=== PATIENT | female | born 1980 | race Two or more races ===

== ENCOUNTER 2024-10-29 20:14 | Emergency (ER) | payer MEDICAID, SELFPAY ==
[2024-10-29 20:44] VITALS: BP 125/85; PULSE 87; RESP 18; TEMP 37.1; O2SAT 98; BMI 29.4
--- NOTE | 2024-10-29 20:49 | EDNOTE_ITS ---
<Statement entered by Juana Phan MD - 11/05/24 17:49> As co-signing physician, I was present and available for consult prn. I concur with the plan and care as documented by the midlevel provider. Upper Respiratory Inf. RME/HPI General Chief Complaint: Flu Like Symptoms Stated Complaint: SORE THROAT, SEWELL,FEVER Time Seen by Provider: 10/29/24 20:41 Source: patient Arrival date/time: 10/29/24 20:14 44-year-old female presents emergency department complaining of headache, sore throat, and productive cough that is been ongoing since yesterday. Mode of arrival: ambulatory Limitations: no limitations Related Data Previous Rx's ?Medication ?Instructions ?Recorded ibuprofen 600 mg tablet 600 mg PO TID PRN pain #30 tabs 01/23/23 azithromycin 250 mg tablet See Rx Instructions PO .COMPLEX #6 10/29/24 tabs ibuprofen 600 mg tablet 600 mg PO Q8H PRN pain #20 tabs 10/29/24 Allergies Allergy/AdvReac Type Severity Reaction Status Date / Time No Known Allergies Allergy Verified 10/29/24 20:16 Review of Systems Review of Systems Systems Reviewed: All systems reviewed, normal except as documented Constitutional Constitutional: Reports system reviewed and no additional complaints, except as documented, Denies body ache(s), Denies chills, Denies fever(s) and Reports headache(s) Eyes Eyes: Reports system reviewed and no additional complaints, except as documented and Denies change in vision ENT Ears, Nose, Mouth, and Throat: Reports system reviewed and no additional compla ints, except as documented, Denies disequilibrium, Denies dizziness, Reports headache(s), Reports sore throat and Denies vertigo Cardiovascular Cardiovascular: Reports system reviewed and no additional complaints, except as documented, Denies chest pain and Denies dyspnea Respiratory Respiratory: Reports system reviewed and no additional complaints, except as documented, Denies chest congestion, Reports cough and Denies dyspnea Gastrointestinal Gastrointestinal: Reports system reviewed and no additional complaints, except as documented, Denies abdominal pain, Denies nausea and Denies vomiting Musculoskeletal Musculoskeletal: Reports system reviewed and no additional complaints, except as documented, Denies abnormal gait and Denies arthralgias Integumentary/Breasts Skin/Breast: Reports system reviewed and no additional complaints, except as documented, Denies erythema, Denies rash and Denies wounds Neurologic Neurologic: Reports system reviewed and no additional complaints, except as documented, Denies abnormal gait, Denies disequilibrium, Denies dizziness, Reports headache(s) and Denies vertigo Past Medical History Social History SMOKING STATUS: Never smoker ED Exam General Limitations: Present no limitations General appearance: Present alert and in no apparent distress Head Head exam: Present atraumatic Eye Eye exam: Present normal appearance, PERRL and EOMI ENT ENT exam: Present normal exam, normal oropharynx and mucous membranes moist Neck Neck exam: Present normal inspection, full ROM and trachea midline Chest Chest inspection: Present normal inspection and symmetric chest wall rise Respiratory Respiratory exam: Present normal lung sounds bilaterally Cardiovascular Cardiovascular exam: Present regular rate, normal rhythm and normal heart sounds Abdominal Exam Abdominal exam: Present soft and normal bowel sounds Extremities Exam Extremities exam: Present normal inspection and full ROM Back Exam Back exam: Present normal inspection and full ROM Neurological Exam Neurological exam: Present alert, oriented X3 and CN II-XII intact Psychiatric Psychiatric exam: Present normal affect and normal mood Skin Skin exam: Present warm, dry, intact and normal color Course Quality Measures none Orders Category Date Time Status Bedside COVID-19 Antigen Test NOW Care 10/29/24 20:49 Completed Bedside Influenza A&B Antigen Test NOW Care 10/29/24 20:49 Completed XR chest 2V Stat Exams 10/29/24 20:49 Completed Strep A Rapid Stat Lab 10/29/24 20:59 Completed Acetaminophen Tab [Tylenol Tab] Med 10/29/24 20:49 Discontinued 650 mg PO X1 ONE Ibuprofen Tab [Motrin Tab] Med 10/29/24 20:49 Discontinued 600 mg PO X1 ONE Vital Signs Vital signs: Vital Signs Temperature 98.7 F 10/29/24 20:44 Pulse Rate 87 10/29/24 20:44 Respiratory Rate 18 10/29/24 20:44 Blood Pressure 125/85 H 10/29/24 20:44 Pulse Oximetry (%) 98 10/29/24 20:44 Oxygen Delivery Method Room Air 10/29/24 20:44 98% room air within normal limits. Upper Respiratory Infection MDM Narrative MDM Narrative:: 44-year-old female presents emergency department complaining of headache, sore throat, and productive cough that is been ongoing since yesterday. X-ray suspicious for early bibasilar pneumonia. Patient tested positive for influenza B. Patient appears nontoxic and hemodynamic stable. Patient 96% on room air and does not appear to be in any visible respiratory distress. Patient discharged on oral azithromycin and instructed to follow-up with primary care provider in 2 to 3 days and return to emergency department for any worsening symptoms or as needed. Patient data External records reviewed:: [facility] previous records Clinical information provided by:: patient Social determinants that could affect healthcare access:: none Patient has the following chronic illnesses:: N/A How is presenting disease/condition affected by chronic disease/condition?: no chronic disease Evaluation data The following diagnostics were reviewed and interpreted by me:: lab results and radiology exam(s) Lab and/or radiology exams considered but not ordered:: Ordered Interpretation Summary: Interpreted by me Medications / Prescriptions Medications or Prescriptions considered but not ordered:: Ordered Medication administrations:: Medication Administration History Discontinued Medications Acetaminophen (Acetaminophen 325 Mg Tablet) 650 mg PO X1 ONE Stop: 10/29/24 20:50 Last Admin: 10/29/24 21:44 Dose: 650 mg Documented By: CVL Ibuprofen (Ibuprofen Tab 600 Mg Tablet) 600 mg PO X1 ONE Stop: 10/29/24 20:50 Last Admin: 10/29/24 21:44 Dose: 600 mg Documented By: CVL Given Consultations Consultation(s) initiated? (list below): No Diagnosis Upper Respiratory Differential Diagnosis: upper respiratory infection, otitis media, sinusitis, viral infection, bronchitis, influenza and pharyngitis Most likely diagnosis given after review of the tests above:: Influenza and pneumonia Admission Indicated Admission indicated?: not indicated Admission Request Was there a request for admission?: No Disposition Plan Disposition Plan: Discharge Discharge Attestation Discharge Attestation: The patient and all family members were given an opportunity to ask questions and understood the discharge instructions. Discharge instructions specifically effects, indications for sooner follow up or return to the emergency department, and the expected course of current diagnosis. Patient condition: Stable Discharge Plan Plan Patient Disposition: HOME (Self Care) Disposition Comment: Stable Prescriptions/Referrals Prescriptions/Med Rec: New azithromycin 250 mg tablet See Rx Instructions .ROUTE .COMPLEX Qty: 6 0RF Rx Instructions: For 250 mg dose pack: take 500 mg today (day 1), then 250 mg for 4 days (days 2-5) ibuprofen 600 mg tablet 600 mg PO Q8H PRN (Reason: pain) Qty: 20 0RF No Action ibuprofen 600 mg tablet 600 mg PO TID PRN (Reason: pain) Qty: 30 0RF Referrals: Mia Harmon PA-C [Primary Care Provider] - In 1 week Problem List Clinical Impression: Influenza and pneumonia Patient/Caregiver Discharge Instructions Discharge Activity: activity as tolerated Education Materials: ED Influenza (Adult), ED Pneumonia (Adult) Additional Instructions: Take medication as prescribed. Take ibuprofen or Tylenol as needed for fever or pain. Follow-up with primary care provider in 2 to 3 days. Return to emergency department for any worsening symptoms or as needed. Print Language: Sami Stand Alone Forms: [facility] Award Info., Patient Portal Info Letter PA/SURJIT Supervising Physician PA/SURJIT Supervising Physician: Dr. Phan
--- NOTE | 2024-10-29 20:49 | XR_ITS ---
Examination: PA lateral chest 2 views Technique: Upright PA lateral chest 2 views Exam date and time: October 29, 20242055 hrs. Indications: Coughing bodyaches beginning yesterday. Findings: Suspicious for early bibasilar pneumonia Normal heart size The osseous structures are intact Impression: Suspicious for early bibasilar pneumonia
[2024-10-29 21:29] LABS: Strep A Rapid Negative (Negative)
[2024-10-29] MEDS: ACETAMINOPHEN 325 MG TABLET 650 MG PO (21:44)
[2024-10-29] MEDS: IBUPROFEN TAB 600 MG TABLET PO (21:44)
[2024-10-29 21:52] VITALS: RESP 18
== END 2024-10-29 21:53 | disposition home or self-care (01) ==
PROVIDERS: Emergency Provider Emergency Medicine; PCP Physician Assistant
DX: J10.00 Influenza due to other identified influenza virus with unspecified type of pneumonia (principal)
CPT/HCPCS: 71046; 87400; 87651; 87811; 99283; A9270

== ENCOUNTER 2025-03-03 17:24 | Emergency (ER) | payer MEDICAID, SELFPAY ==
[2025-03-03 18:02] VITALS: BP 128/84; PULSE 76; RESP 18; TEMP 36.7; O2SAT 97; BMI 34.5
--- NOTE | 2025-03-03 18:21 | XR_ITS ---
Examination: Lumbar spine 3 views TECHNIQUE: AP lateral coned lateral thoracolumbar spine 3 views Standing time: March 03, 20252011 hours INDICATIONS: Pain radiating to the legs beginning this week FINDINGS: Lumbar levoscoliosis 6 degrees No lumbar fracture. No lumbar disc narrowing No spondylolisthesis IMPRESSION: No lumbar fracture or lumbar disc narrowing
[2025-03-03] MEDS: KETOROLAC INJ 60 MG/2 ML VIAL 30 MG IM (18:38)
[2025-03-03] MEDS: ACETAMINOPHEN 325 MG TABLET 650 MG PO (18:38)
--- NOTE | 2025-03-03 18:49 | PD.EDLOWEX ---
Lower Extremity Injury RME/HPI General Chief Complaint: Extremity Injury, Lower Stated Complaint: BILATERAL LEG PAIN NON TRAUAMA Time Seen by Provider: 03/03/25 18:08 Arrival date/time: 03/03/25 17:24 Limitations: language barrier RME / HPI RME / HPI Narrative: 44-year-old female with no reported past medical history presents for evaluation of low back pain that radiates to her right leg x 1 week. Patient describes the pain as sharp, burning it is worse with bending. Patient reports history of similar symptoms for which she received an epidural injection which improved her symptoms for several months. Patient denies trauma, bladder and bowel incontinence, hematuria, numbness, tingling, fever. Patient reports that she works in the [employer] and has diffuse joint pain for which she takes ibuprofen with some improvement in symptoms. Related Data Previous Rx's ?Medication ?Instructions ?Recorded ibuprofen 600 mg tablet 600 mg PO TID PRN pain #30 tabs 01/23/23 azithromycin 250 mg tablet See Rx Instructions PO .COMPLEX #6 10/29/24 tabs ibuprofen 600 mg tablet 600 mg PO Q8H PRN pain #20 tabs 10/29/24 acetaminophen 325 mg tablet (Pain 325 mg PO QID PRN pain #30 tabs 03/03/25 Relief (acetaminophen)) gabapentin 100 mg capsule 100 mg PO QDAY back pain #30 caps 03/03/25 ibuprofen 800 mg tablet 800 mg PO Q8H PRN pain #14 tabs 03/03/25 Allergies Allergy/AdvReac Type Severity Reaction Status Date / Time No Known Allergies Allergy Verified 10/29/24 20:16 Review of Systems Constitutional Constitutional: Denies body ache(s), Denies chills, Denies fever(s), Denies frequent falls, Denies headache(s) and Denies night sweats ENT Ears, Nose, Mouth, and Throat: Denies headache(s) Cardiovascular Cardiovascular: Denies acrocyanosis, Denies chest pain, Denies diaphoresis, Denies dyspnea, Denies leg edema, Denies pedal edema and Denies radiating jaw, neck or arm pain Respiratory Respiratory: Denies cough, Denies dyspnea and Denies hemoptysis Gastrointestinal Gastrointestinal: Denies abdominal pain, Denies nausea and Denies vomiting Genitourinary Genitourinary: Denies abnormal vaginal bleeding, Denies dysuria and Denies hematuria Musculoskeletal Musculoskeletal: Denies abnormal gait, Reports arthralgias, Reports back pain, Denies muscle cramps, Denies numbness and Denies tingling Integumentary/Breasts Skin/Breast: Denies new lesions and Denies rash Neurologic Neurologic: Denies abnormal gait, Denies frequent falls, Denies headache(s), Denies lack of coordination, Denies numbness and Denies tingling Past Medical History Social History SMOKING STATUS: Never smoker ED Exam General Limitations: Present language barrier General appearance: Present alert and in no apparent distress Head Head exam: Present atraumatic and normocephalic Eye Eye exam: Present normal appearance, PERRL and other (bilateral medial pterygium ) ENT ENT exam: Present mucous membranes moist Neck Neck exam: Present normal inspection and full ROM Chest Chest inspection: Present normal inspection and symmetric chest wall rise Respiratory Respiratory exam: Present normal lung sounds bilaterally and wheezes; Absent respiratory distress Cardiovascular Cardiovascular exam: Present regular rate and +S1 Abdominal Exam Abdominal exam: Present soft; Absent distention Extremities Exam Extremities exam: Present normal inspection and full ROM; Absent pedal edema, joint swelling or calf tenderness Expanded Lower Extremity Exam Knee exam: Present normal inspection and full ROM; Absent tenderness, swelling or effusion Back Exam Back exam: Present full ROM, paraspinal tenderness, vertebral tenderness (midline L4-L5 ) and straight leg raise (R) Neurological Exam Neurological exam: Present alert and normal gait; Absent motor sensory deficit Psychiatric Psychiatric exam: Present normal affect Skin Skin exam: Present warm, dry and intact Course Quality Measures none Orders Category Date Time Status XR lumbar spine 2-3V Stat Exams 03/03/25 18:21 Completed HCG Qualitative,Urine Stat Lab 03/03/25 18:47 Completed UA, C/S IF [Urinalysis, C/S if Indicated] Stat Lab 03/03/25 18:47 Completed Acetaminophen Tab [Tylenol Tab] Med 03/03/25 18:21 Discontinued 650 mg PO X1 ONE Ketorolac Inj [Toradol Inj] Med 03/03/25 18:21 Discontinued 30 mg IM X1 ONE Vital Signs Vital signs: Vital Signs Temperature 98.0 F 03/03/25 18:02 Pulse Rate 76 03/03/25 18:02 Respiratory Rate 18 03/03/25 18:02 Blood Pressure 128/84 03/03/25 18:02 Pulse Oximetry (%) 97 03/03/25 18:02 Oxygen Delivery Method Room Air 03/03/25 18:02 Pulse ox 97% on room air, within normal limits. Extremity Injury, Lower MDM Narrative MDM Narrative:: 44-year-old female presented with lumbar back pain that radiates down her lower right leg. No trauma. Vital signs stable. Reflexes intact and equal bilaterally with no bladder or bowel incontinence therefore less concern for cauda equina. X-ray showed no fracture or joint space narrowing. More likely chronic back pain (patient reports requiring epidural injections in the past for similar symptoms) with possible sciatica. Patient was given analgesics in the department and discharged with a short course of gabapentin and analgesics with plan to follow-up with primary care within the next week for further evaluation and treatment of chronic pain. Patient stable at time of discharge. Patient data External records reviewed:: [facility] previous records Clinical information provided by:: patient Social determinants that could affect healthcare access:: none Patient has the following chronic illnesses:: Chronic lumbar back pain. Chronic diffuse joint pain. How is presenting disease/condition affected by chronic disease/condition?: caused by Evaluation data The following diagnostics were reviewed and interpreted by me:: lab results and radiology exam(s) Lab and/or radiology exams considered but not ordered:: No joint space narrowing of lumbar x-ray today. No evidence of acute fracture. UA unremarkable. Interpretation Summary: See above. Medications / Prescriptions Medications or Prescriptions considered but not ordered:: Rx given. Medication administrations:: Medication Administration History Discontinued Medications Acetaminophen (Acetaminophen 325 Mg Tablet) 650 mg PO X1 ONE Stop: 03/03/25 18:22 Last Admin: 03/03/25 18:38 Dose: 650 mg Documented By: GAURAV Ketorolac Tromethamine (Ketorolac Inj 60 Mg/2 Ml Vial) 30 mg IM X1 ONE Stop: 03/03/25 18:22 Last Admin: 03/03/25 18:38 Dose: 30 mg Documented By: GAURAV Rx given. Consultations Consultation(s) initiated? (list below): No Diagnosis Extremity Injury, Lower Differential Diagnosis: acute internal derangement of knee and other (Sciatica, acute fracture lumbar vertebrae, radiculopathic pain, chronic back pain, cauda equina. ) Most likely diagnosis given after review of the tests above:: Chronic back pain, sciatica. Admission Indicated Admission indicated?: not indicated Admission Request Was there a request for admission?: No Disposition Plan Disposition Plan: Discharge Discharge Attestation Discharge Attestation: The patient and all family members were given an opportunity to ask questions and understood the discharge instructions. Discharge instructions specifically effects, indications for sooner follow up or return to the emergency department, and the expected course of current diagnosis. Patient condition: Stable Discharge Plan Plan Patient Disposition: HOME (Self Care) Disposition Comment: stable Prescriptions/Referrals Prescriptions/Med Rec: New gabapentin 100 mg capsule 100 mg PO QDAY Qty: 30 0RF ibuprofen 800 mg tablet 800 mg PO Q8H PRN (Reason: pain) Qty: 14 0RF acetaminophen [Pain Relief (acetaminophen)] 325 mg tablet 325 mg PO QID PRN (Reason: pain) Qty: 30 0RF No Action ibuprofen 600 mg tablet 600 mg PO TID PRN (Reason: pain) Qty: 30 0RF azithromycin 250 mg tablet See Rx Instructions .ROUTE .COMPLEX Qty: 6 0RF Rx Instructions: For 250 mg dose pack: take 500 mg today (day 1), then 250 mg for 4 days (days 2-5) ibuprofen 600 mg tablet 600 mg PO Q8H PRN (Reason: pain) Qty: 20 0RF Referrals: No Primary/Family,Physician [Primary Care Provider] - In 1 week Problem List Clinical Impression: Joint pain, Back pain of lumbar region with sciatica Patient/Caregiver Discharge Instructions Other Activity Instructions:: Take gabapentin 3 times daily as needed for back and posterior leg pain. Take ibuprofen every 6 hours as needed for pain. Take Tylenol every 6 hours as needed for pain. Follow-up with primary care within the next week for reevaluation. Consider repeat epidural injection for chronic lumbar back pain. Return to the ED if your symptoms worsen or change. Education Materials: ED Back Exercises, Lumbar, ED Back Pain (Acute or Chronic) Print Language: Kazakh Stand Alone Forms: Sylwia Award Info., Patient Portal Info Letter PA/SURJIT Supervising Physician PA/SURJIT Supervising Physician: Dr. Hood
[2025-03-03 18:54] LABS: Collection Type, Urine Clean Catch
[2025-03-03 18:58] LABS: HCG Qualitative,Urine Negative
[2025-03-03 18:59] LABS: Bilirubin,Urine Negative (Negative); Blood,Urine Trace (Negative); Clarity,Urine Clear (Clear/Hazy); Color,Urine Lt-Yellow (Lt Yel-Yel); Culture Indicated,Urine Not Indicated; Glucose, Urine Negative (Negative); Hyaline Casts,Urine < 1 /hpf (0-1); Ketones,Urine Negative (Negative); Leukocyte Esterase,Urine Negative (Negative); Nitrite,Urine Negative (Negative); Protein,Urine Negative (Neg - Trace); RBC,Urine 1 /hpf (0-3); Specific Gravity,Urine 1.025 (1.001-1.035); Squamous Epithelial Cell,Urine 8 /hpf (0-5); Urobilinogen,Urine Negative mg/dL (0.0-1.0); WBC,Urine 1 /hpf (0-5)
== END 2025-03-03 20:11 | disposition home or self-care (01) ==
PROVIDERS: Physician Assistant; Emergency Provider Emergency Medicine
DX: M54.41 Lumbago with sciatica, right side (principal)
CPT/HCPCS: 72100; 81001; 81025; 96372; 99283; J1885; A9270